=== PATIENT | male | born 1955 | race Caucasian/White ===

== ENCOUNTER → 2020-05-04 12:53 | Outpatient (CLI) | payer BC, SELFPAY ==
--- NOTE | ~2020-05-04 | MR_ITS ---
EXAMINATION: MR knee RT wo con DATE: 05/04/2020 14:30 INDICATION: Right knee pain TECHNIQUE: Magnetic resonance imaging (MRI) of the right knee was performed without intravenous contr ast. Sequences included coronal PD-weighted FSE, coronal PD-weighted FS FSE, sagittal T2-weighted FS E, sagittal PD-weighted FS FSE and axial PD weighted fat saturated FSE. COMPARISON: None. FINDINGS: Medial compartment: There is increased signal extending to contact the articular surface in the body and posterior horn o f the medial meniscus which could represent either complex tear or scarring related to a prior repair ed tear in the appropriate clinical setting. The posterior horn does appear small suggesting prior pa rtial mastectomy. Correlate with surgical history. Partial-thickness cartilage loss at the medial tib ial plateau greatest along the medial third were processed full-thickness with underlying mild subart icular edema. Additional partial thickness cartilage loss with chondral surface regularity most promi nent along the medial side of the anterior to central weightbearing medial femoral condyle. Additiona l small foci of subarticular edema along the medial margin of the central to posterior weightbearing medial femoral condyle. Lateral compartment: Lateral meniscus is normal. Partial-thickness chondral ulceration deep fissuring at the central aspec t of the lateral tibial plateau with minimal subarticular edema along the shoulder the intercondylar eminence. Patellofemoral compartment: Prominent central subchondral osteophyte likely degenerative prior chondral ulceration or fissuring a t the medial side of the cephalad aspect of the trochlear groove. Remaining cartilage in the patellof emoral compartment appears relatively preserved. Ligaments and tendons: Anterior and posterior cruciate ligaments are normal. The medial collateral ligament and fibular angi ateral ligament complex are normal. Mild distal quadriceps and proximal patellar tendinopathy. The vi sualized medial and lateral hamstring tendons as well as the iliotibial band are normal. Fluid: Small amount of fluid at the suprapatellar pouch which is within normal limits. 1.8 x 0.8 x 1.5 cm lo ose body at the posterior recess situated between the anterior and posterior cruciate ligaments. Smal l Lamb's cyst. Osseous/other: 9 x 5 x 5 mm enchondroma along the fascial scar at the posterior aspect of the distal femoral metaphy sis with typical cluster of grape like mildly increased fluid signal. There was normal marrow signal with no fracture or pathologic marrow replacing process. Small focus of susceptibility artifact exten ding along a linear tract at the anteromedial aspect of the knee suggesting sequela of a prior arthro scopy port. IMPRESSION: 1. Complex medial meniscal tear versus scarring related to prior vascular repair. Correlate with surg ical history. If clinically indicated MR arthrogram could be obtained for more definitive discriminat ion. 2. Tricompartmental osteoarthritis, moderate severity in the medial compartment and mild in the later al and patellofemoral compartments with regions of high-grade chondromalacia in all 3 compartments. 3. Small Lamb's cyst. Reviewed, dictated and finalized at location A. IMPRESSION: 1. Complex medial meniscal tear versus scarring related to prior vascular repai r. Correlate with surgical history. If clinically indicated MR arthrogram could be obtained for more definitive discrimination. 2. Tricompartmental osteoarthritis, moderate severity in the medial compartment and mild in the lateral and patellofemoral compartments with regions of high-g rade chondromalacia in all 3 compartments. 3. Small Lamb's cyst.
--- NOTE | ~2020-05-04 | MR_ITS ---
EXAMINATION: MR knee LT wo con DATE: 05/04/2020 14:16 INDICATION: Left knee pain TECHNIQUE: Magnetic resonance imaging (MRI) of the left knee was performed without intravenous contra st. Sequences included coronal PD-weighted FSE, coronal PD-weighted FS FSE, sagittal T2-weighted FSE , sagittal PD-weighted FS FSE and axial PD weighted fat saturated FSE. COMPARISON: None. FINDINGS: Medial compartment: Complex tear of the body and posterior horn of the medial meniscus. This includes a small meniscal fl ap which is displaced superiorly from the periphery of the meniscal body positioned along side a lachelle inal osteophyte at the anterior weightbearing medial femoral condyle. Partial thickness cartilage los s with chondral surface irregularity along the medial tibial plateau and weightbearing medial femoral condyle. This most severe along the medial aspect of the medial tibial plateau where it produces ful l-thickness with underlying subarticular edema. Additional deep chondral ulceration at the posterior weightbearing medial femoral condyle where there is a large central subchondral osteophyte with mild subarticular edema along its inferior margin. Moderate size marginal osteophytes are present. Lateral compartment: Increased intrasubstance signal throughout the posterior horn and posterior body of the lateral menis cus which extends to contact the articular surfaces medially near its posterior root consistent with tear either complex or radial. Chondral ulceration and deep fissuring along the posterior third of th e lateral tibial plateau. Chondral ulceration with deep fissuring with mild irregularity to the under lying articular cortex and subarticular edema at both the anterior and posterior weightbearing latera l femoral condyle. Small to moderate-sized marginal osteophytes are present. Patellofemoral compartment: Deep chondral ulceration extending across the caudal aspect of the patella with prominent central sub chondral osteophyte extending across the inferior aspect of the patellar apical ridge. Deep chondral ulceration and fissuring with additional central subchondral osteophytes at the central and superior aspect of the medial trochlea and trochlear groove and at the superior and inferior aspects of the la teral trochlea. Moderate size marginal osteophytes are present. Ligaments and tendons: Anterior cruciate ligament is normal. There is thickening and increased intrasubstance signal in the posterior cruciate ligament consistent with at least partial tear. There is thickening and mild incre ased signal of the proximal fibular collateral ligament without surrounding edema and mild thickening of the proximal medial collateral ligament also without surrounding edema consistent with scarring r elated to chronic sprains of both the medial and fibular collateral ligaments. Mild distal quadriceps tendinopathy and diffuse mild patellar tendinopathy. The visualized medial and lateral hamstring ten dons as well as the iliotibial band are normal. Fluid: Small amount of fluid at the suprapatellar pouch which is within normal limits but with mild surround ing synovitis. Small Lamb's cyst. No loose osteochondral bodies identified. Suprapatellar plical ban d. Osseous/other: Old healed fracture at the distal metadiaphyseal region of the femur. No acute fracture or pathologic marrow replacing process. There is scarring at the medial and lateral aspects of Hoffa's fat pad lik stew related to prior arthroscopy. IMPRESSION: 1. Medial and lateral meniscal tears. 2. Tricompartmental osteoarthritis, moderate severity in the patellofemoral compartment and mild in t he medial and lateral compartment with high-grade chondromalacia in all 3 compartments. 3. Patellar and distal quadriceps tendinopathy. 4. At least partial tear of the posterior cruciate ligament and scarring consistent with chronic spra
== END ==
PROVIDERS: PCP Physician Assistant; Visit Provider Orthopaedic Surgery
DX: M17.0 Bilateral primary osteoarthritis of knee (principal); S83.242A Other tear of medial meniscus, current injury, left knee, initial encounter; S83.282A Other tear of lateral meniscus, current injury, left knee, initial encounter; X58.XXXA Exposure to other specified factors, initial encounter; M71.21 Synovial cyst of popliteal space [Baker], right knee; M71.22 Synovial cyst of popliteal space [Baker], left knee
CPT/HCPCS: 73721

== ENCOUNTER → 2020-06-19 00:53 | Outpatient (CLI) | payer BC, SELFPAY ==
[2020-06-19 19:36] LABS: SARS-CoV-2 RNA PCR Negative
== END ==
PROVIDERS: PCP Physician Assistant; Visit Provider Orthopaedic Surgery
DX: Z01.812 Encounter for preprocedural laboratory examination (principal); Z20.822 Contact with and (suspected) exposure to COVID-19
CPT/HCPCS: C9803; U0003; U0005

== ENCOUNTER 2020-06-22 02:13 | Day surgery (SDC) | payer BC, SELFPAY ==
[2020-06-11 19:13] VITALS: BMI 29.9
[2020-06-22] VITALS (8 sets, daily range): BP systolic 143–178; BP diastolic 81–96; PULSE 58–77; RESP 10–18; TEMP 36.1–36.2; O2SAT 98–100
[2020-06-22] MEDS: ACETAMINOPHEN 500 MG TABLET 1000 MG PO (09:21)
[2020-06-22] MEDS: KETOROLAC 15 MG/ML VIAL (*BKC) IV PUSH (09:22)
[2020-06-22] MEDS: LACTATED RINGERS 1,000 ML 30 ML IV CONT ×2 (09:23→11:20)
--- NOTE | 2020-06-22 09:25 | WPDANESEPPF ---
Anes - Initial Pre Proc Eval Procedure: Operation Date: 06/22/20 10:30 Proposed Procedures p Right Knee Arthroscopy, Partial Meniscectomy - Luis A You MD Date/Time: 06/22/20 09:25 Surgeon: Luis A You MD Pre Op Diagnosis: right knee medial meniscal tear Patient Data Age: 64 Gender: M Height: 1.83 m Weight: 100 kg Allergies Allergy/AdvReac Type Severity Reaction Status Date / Time No Known Allergies Allergy Verified 06/22/20 08:43 Home Medications Medication Instructions Recorded Confirmed Type ibuprofen 600 mg PO BID 06/11/20 06/22/20 History Patient hx anesthesia problems: none Family hx anesthesia problems: none [facility] Past Medical History Medical History (Updated 06/17/20 @ 07:56 by Luis A You MD) Degenerative arthritis of knee, bilateral Right knee meniscal tear Surgical History Surgical History History of arthroscopic knee surgery both knees - once on the right in 2011, 3 times on left, last time 2017 History of fusion of cervical spine Family History Family History Grandparent Cancer Social History Social History Smoking status: Former smoker Tobacco type: cigarettes Second hand tobacco smoke exposure: No Smoking end date: 03/10/83 Additional smoking assessment comments: 2 ppd x 10 Alcohol intake: never Substance use: never Substance use type: does not use Living arrangements: with family 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 Gender identity (if verbalized by the patient): Male Spiritual care concerns: No Anes - Eval Final PreProcedure Day of Procedure 06/22/20 09:25 Patient weight: overweight Heart: regular rate and rhythm Lungs: clear to auscultation and normal air movement Airway: Mallampati scale class II Neurological: alert and oriented Last oral intake: >/= 8 hours ASA classification: II Emergent: no Anesthetic plan: proceed Anesthesia type and monitoring: general LMA and standard monitoring Informed Consent: The patient's anesthetic plan and its attendant risks and benefits were discussed with the patient/family/POA. Questions were solicited and answers provided to the satisfaction of the patient/family/POA.
--- NOTE | 2020-06-22 09:56 | WPDHPUPDATE1 ---
History and Physical Update Update Date/Time: 06/22/20 09:56 History and Physical has been reviewed, including an updated exam of the patient. There are NO changes in the patient's condition. Risks, benefits, and alternatives have been discussed and questions answered. Patient agrees to proceed with procedure.
[2020-06-22] MEDS: ceFAZolin 2 GM/D5W 50 ML 2 GM/50 ML BAG IVPB (10:18)
--- NOTE | 2020-06-22 11:29 | P.OP_ITS ---
Procedure Note - Detailed Date of procedure: 06/22/20 Pre-op diagnosis: right knee medial meniscal tear Post-op diagnosis: same Procedure performed: right knee arthroscopy, partial meniscectomy Description of procedure: The patient was identified and proper site identified. He was taken to the operating room and transferred to the OR table placing her supine taking care to pad the torso and extremities. After general anesthetic induction and intubation, a nonsterile tourniquet was placed high on the right thigh but was not used. The right lower extremity was positioned, prepped and draped in usual sterile fashion. 10 cc of 1% lidocaine was injected into the subcutaneous tissue in the area of the portals at start of the procedure, and an additional 10 at the end. The portals were established and the arthroscopy was carried out. There was extensive chronic synovitis throughout knee and quite a bit along the medial margin of the medial femoral condyle. This was addressed by cauterizing it with the ArthroCare Wand. A rticular cartilage in all three compartments had extensive grade two and early grade 3 changes anteriorly and laterally. ACL and PCL were in continuity. There was grade 4 kissing lesion noted medially. Complex tearing of the medial meniscus from the posterior horn into the midbody noted. This was contoured back to a more stable rim with basket forceps and shaver. Arthrocare Wand was used for intra-articular hemostasis The knee was flushed with a copious amount of arthroscopic fluid and equipment was removed. Portals were closed with three O nylon suture and a sterile dressing was applied. tolerated the procedure well, was awakened, extubated and taken to recovery area in stable condition. There were no known intraoperative complications. Estimated blood loss was negligible. He received perioperative antibiotics. Anesthesia: GLMA Surgeon: Luis A You MD Estimated blood loss (mL): 15 Tourniquet time (min): 0 Drains: No Packing: No Pathology: none sent Complications: No immediate complications Condition: stable Disposition: PACU
--- NOTE | 2020-06-22 11:45 | SUR.PHASEI ---
O2 removed at 1145.
[2020-06-22] MEDS: oxyCODONE HCL (*CRX) 5 MG TAB IR PO (12:39)
== END 2020-06-22 13:11 | disposition home or self-care (01) ==
PROVIDERS: PCP Physician Assistant; Visit Provider Orthopaedic Surgery
PROC: (CPT 29870; principal; 2020-06-22 10:30)
DX: M23.321 Other meniscus derangements, posterior horn of medial meniscus, right knee (principal); M65.861 Other synovitis and tenosynovitis, right lower leg; Z87.891 Personal history of nicotine dependence
CPT/HCPCS: 29881; A9270; J0690; J1100; J1885; J2250; J2405; J2704; J3010; J7120

== ENCOUNTER 2020-07-13 11:00 | Outpatient (RCR) | payer BC, SELFPAY ==
--- NOTE | 2020-06-24 16:56 | PTOPEVAL ---
Thank you for referring Kane Ahuja to [facility].? The patient is scheduled to be seen for therapy? ____x/week for ___ weeks. Please review, sign, date and return this plan of care RONI. I agree with and certify that the following plan of care is medically necessary. Referring Physician Date Admitting Provider: Attending Provider: Luis A You MD Referring Provider: *PT Outpatient Evaluation Start: 06/24/20 15:52 Freq: Status: Active Protocol: Document 06/24/20 15:52 MLV (Rec: 06/24/20 16:43 MLV [id number]) Therapy Assessment Status Assessment Status Assessment Status Evaluation Outpatient Past Medical History Past Medical History Source of Past Medical History Patient,Recalled from Previous Visit, Confirmed with Patient /Family Neurological History Hx Neurological Disorders No Significant History Cardiovascular History Hx Cardiac Disorders No Significant History Respiratory History Hx Respiratory Disorders No Significant History Gastrointestinal History Hx Gastrointestinal Disorders No Significant History Genitourinary History Hx Genitourinary Disorders No Significant History Musculoskeletal History Hx Fractures Yes: left femur repaired Hx Orthopedic Surgery Yes: left knee arthroscopies x3,right knee arthroscopy x1 Hx Spinal Surgery Yes: c5-4 removed with metal plate Hematological History Hx Hematological Disorders No Significant History Endocrine History Hx Endocrine Disorders No Significant History HEENT History Hx HEENT Disorders No Significant History Integumentary History Hx Skin Disorders No Significant History Reproductive History Hx Reproductive Disorders No Significant History Psychosocial History Hx Psychiatric Disorders No Significant History Pain History Has Past Pain Affected Your Daily Life Yes Effective Methods of Pain Control ibuprofen Anesthesia History Hx Anesthesia Reactions No Significant History Evaluation Information Problem Diagnosis s/p right knee scope for MT, OA Onset 1year + Cause no injury Additional Evaluation Detail The patient has been having pain at the right knee for over a year and was getting shots, but the shots stopped helping the pain. The patient had his knee scoped on 06/22/20 . 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 The maury
--- NOTE | 2020-06-24 16:57 | PTOPEVAL ---
PHYSICAL THERAPY EVALUATION Thank you for referring Kane Ahuja to [facility].?Kane was evaluated for the dx of right knee scope. The patient is scheduled to be seen for therapy? 1 x/week for 2 weeks(less due to level of ability and pt preference). Please review, sign, date and return this plan of care RONI. I agree with and certify that the following plan of care is medically necessary. Referring Physician Date Attending Provider: Luis A You MD *PT Outpatient Evaluation Start: 06/24/20 15:52 Freq: Status: Active Protocol: Document 06/24/20 15:52 MLV (Rec: 06/24/20 16:43 MLV [id number]) Therapy Assessment Status Assessment Status Evaluation Evaluation Information Problem Diagnosis s/p right knee scope for MT, OA Onset 1year + Cause no injury Additional Evaluation Detail The patient has been having pain at the right knee for over a year and was getting shots, but the shots stopped helping the pain. The patient had his knee scoped on 06/22/20. 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 The patient was still working up until surgery and is off now for recovery. The patient sees the MD on July 07 for follow up. Pain Assessment Timing of Pain Assessment Timing of Pain Assessment Assessment Pain Scale Pain Scale Used Numeric (1 - 10) Self Report Pain Assessment Right Knee(s) Reported Pain Level 3 Pain Description Aching Pain Frequency Continuous Other Pain Description pain with walking is 7 out of 10. Pain Score Pain Score 3: Self Report Interventions Used Interventions Used By Clinicians Education,Exercise,Ice Pain Relief Interventions Used By Elevation,Ice,Medication, Patient Position Change Lower Extremity Range of Motion General Lower Extremity Range of Motion Reason Not Measured WFL/Left,WFL/Right Gross Lower Extremity Range of Motion active knee ROM: left 0-117' ( Comments flexion limited for yrs from prior surgeries/injury) * right knee 3-113' Lower Extremity Muscle Strength Testing General Lower Extremity Strength R
--- NOTE | 2020-07-13 11:56 | PTOPEVAL ---
PHYSICAL THERAPY DISCHARGE Thank you for referring Kane Ahuja to [facility].? The patient has completed 3 visits for the dx of right knee scope. Bulmaro is I with HEP and plans to continue on his own with most goals met this date. DC PT. Please review, sign, date and return this plan of care RONI. I agree with and certify the following plan of care. Referring Physician Date Attending Provider: Luis A You MD *PT Outpatient Discharge Start: 06/24/20 15:52 Freq: Status: Active Protocol: Document 07/13/20 11:05 MLV (Rec: 07/13/20 11:52 [facility] [id number]) Discharge Information Problem Diagnosis s/p right knee scope for MT, OA Onset 1year + Cause no injury Additional Evaluation Detail The patient reports seeing the MD and getting a good report. The other knee is painful but reports needing a TKA on the left side so is planning on waiting. The patient reports right knee doing well but having trouble with the bending. Pain Assessment Timing of Pain Assessment Timing of Pain Assessment Assessment Pain Scale Pain Scale Used Numeric (1 - 10) Self Report Pain Assessment Right Knee(s) Reported Pain Level 1 Pain Frequency Acute,Chronic Other Pain Description bending creates pain Greatest Pain Intensity 10 Pain Aggravating Factors Exercise/Activity,Weight Bearing/Standing Pain Behaviors Limping Pain Score Pain Score 1: Self Report Interventions Used Interventions Used By Clinicians Education,Exercise,Ice Pain Relief Interventions Used By Exercise,Inactivity/Rest, Patient Position Change Lower Extremity Range of Motion General Lower Extremity Range of Motion Reason Not Measured WFL/Left,WFL/Right Gross Lower Extremity Range of Motion active knee ROM: left 0-117' ( Comments flexion limited for yrs from prior surgeries/injury) * right knee 0-122' Lower Extremity Muscle Strength Testing General Lower Extremity Strength Reason Not Measured WNL/Left Gross Lower Extremity Strength left hip 5/5, knee 5/5 with isometric testing Palpation Assessment Palpation Palpation good patellar mobility and no notable swelling/redness at right knee Gait Assessment Gait Pattern Assessment Other Gait Observations
== END 2020-07-14 08:32 | disposition home or self-care (01) ==
LOC: ANHPT 11:00
PROVIDERS: PCP Physician Assistant; Visit Provider Orthopaedic Surgery
DX: Z48.89 Encounter for other specified surgical aftercare (principal); Z98.890 Other specified postprocedural states
CPT/HCPCS: 97110; 97162

== ENCOUNTER 2021-03-09 10:54 | Outpatient (CLI) | payer BC, SELFPAY ==
--- NOTE | 2021-03-09 11:06 | ECG_ITS ---
Measurements Intervals [place] Rate: 61 P: -30 AK: 130 QRS: 42 QRSD: 98 T: 62 QT: 428 QTc: 431 Interpretive Statements SINUS RHYTHM BASELINE ARTIFACT- I, III, AVL, V6 NORMAL ECG Electronically Signed On 03-09-2021 11:19:58 [employer] by Robert Daniels D.O.
== END 2021-03-09 10:55 | disposition home or self-care (01) ==
PROVIDERS: PCP Family Medicine; Visit Provider Family Medicine
DX: Z01.818 Encounter for other preprocedural examination (principal)
CPT/HCPCS: 93005

== ENCOUNTER 2021-03-18 08:04 | Outpatient (CLI) | payer BC, SELFPAY ==
[2021-03-18 09:06] LABS: Basophils Percent Auto 0.3 % (0.2-1.2); Eosinophils Absolute Auto 0.1 K/mm3 (0-0.3); Eosinophils Percent Auto 0.8 % (0-4.4); Hemoglobin 15.6 g/dL (14.0-18.0); Immature Granulocyte Absolute 0.02 K/mm3 (0.00-0.031); Immature Granulocyte Percent A 0.3 % (0-0.5); Lymphocytes Percent Auto 22.6 % (18.3-44.2); Mean Corpuscular HGB Conc 33.9 g/dl (32-36); Mean Corpuscular Hemoglobin 32.4 pg (26-34); Mean Corpuscular Volume 95.4 fl (80-100); Mean Platelet Volume 11.1 fl (7.4-10.4); Monocytes Absolute Auto 0.7 K/mm3 (0.1-0.6); Monocytes Percent Auto 10.1 % (2.6-8.5); Neutrophils Absolute Auto 4.4 K/mm3 (1.3-6.7); Neutrophils Percent Auto 65.9 % (45.5-73.1); Platelet Count Result 189 k/mm3 (150-375); Red Blood Count 4.82 M/mm3 (4.6-6.20); White Blood Count 6.6 K/mm3 (4.5-10.0)
[2021-03-18 09:18] LABS: Albumin Level 4.7 g/dL (3.5-5.1); Estimated Glomerular Filt Rate > 60; Glucose 108 mg/dL (65-110)
[2021-03-18 09:22] LABS: Urine Cotinine NEGATIVE
[2021-03-18 09:59] LABS: Hemoglobin A1C 5.5 % (<5.7)
== END 2021-03-18 08:05 | disposition home or self-care (01) ==
LOC: ANHSURGERY 08:08
PROVIDERS: PCP Family Medicine; Visit Provider Orthopaedic Surgery
DX: Z01.812 Encounter for preprocedural laboratory examination (principal); M17.11 Unilateral primary osteoarthritis, right knee; Z51.81 Encounter for therapeutic drug level monitoring; Z79.899 Other long term (current) drug therapy
CPT/HCPCS: 80307; 82040; 82565; 82947; 83036; 85025; 86850; 86900; 86901; 87081

== ENCOUNTER 2021-03-29 00:21 | Day surgery (SDC) | payer BC, SELFPAY ==
[2021-03-18 08:01] VITALS: BP 140/84; PULSE 60; RESP 20; TEMP 36.6; O2SAT 98; BMI 29.8
--- NOTE | 2021-03-18 08:02 | PC.NURSE ---
Report to the Outpatient Waiting Room, entrance under the green pavilion located off [facility], at time _0600_ on date _03/29/21_. OR Time: _0730_. - You will be asked a series of questions to screen for COVID 19 for your protection. - A mask is required within the hospital. - No visitors are allowed at this time. Preoperative COVID Testing Requirements: NONE -Patients may have clear liquids (water, carbonated beverages, clear teas, apple juice) until 3 hours prior to surgery (0430 AM) with a maximum of 20 ounces. - No food from midnight until time of surgery Take the following medications with a SIP of water the morning of surgery: _TYLENOL IF NEEDED_ Medications to discontinue per DR. JUAREZ'S INSTRUCTIONS __IBUPROFEN_ Please no make-up, nail romanian, hairspray, perfume, deodorant, or body powder the day of surgery. No jewelry (including any body piercings) or valuables the day of surgery, leave them at home. Please take a shower or bath the night before, or the morning of, surgery with an antibacterial soap. Wear comfortable, loose fitting clothing. Children are encouraged to wear pajamas. - Jewelry must be removed prior to entering the operating room. Rings and piercings that are not removed may be cut off. - The hospital will not accept responsibility for valuables. - Please leave all valuables, including medications, at home the day of surgery. If you are going home after surgery, a licensed hydraulic lift driver must drive you home. - NO public transportation without another adult. - We recommend that an adult stay with you for 24 hours following discharge. - We also recommend that you do not drive, make important decision, drink alcoholic beverages, or take any drugs that were not prescribed by your health care provider for at least 24 hours after your discharge time. Follow any additional instructions given to you from DR. JUAREZ. Instructions given to ____PT and asked if any additional questions and then verbalized understanding. Patient advised to call surgeon office or pre surgery nurse liaisonALETHEA [phone] if any additional questions.
[2021-03-29] VITALS (15 sets, daily range): BP systolic 131–173; BP diastolic 64–91; PULSE 48–65; RESP 8–20; TEMP 36.1–36.6; O2SAT 99–100; BMI 29.8
--- NOTE | ~2021-03-29 | XR_ITS ---
EXAMINATION: XR knee RT 2V DATE: 03/29/2021 10:31 SIPHONER INDICATION: Right total knee arthroplasty TECHNIQUE: 2 views right knee FINDINGS: There is a right total knee arthroplasty in expected position. Subcutaneous gas with fluid and air in the joint are consistent with recent surgery. No evidence of periprosthetic fracture. IMPRESSION: 1. Recent right total knee arthroplasty. Reviewed, dictated and finalized at location B. ONER
[2021-03-29] MEDS: ACETAMINOPHEN 500 MG TABLET 1000 MG PO (06:30)
[2021-03-29] MEDS: LACTATED RINGERS 1,000 ML 30 ML IV CONT ×2 (06:50→10:09)
--- NOTE | 2021-03-29 06:58 | P.PNAN_ITS ---
Anes - Initial Pre Proc Eval Procedure: Operation Date: 03/29/21 07:30 Proposed Procedures p Right Total Knee Arthroplasty - Luis A You MD Date/Time: 03/29/21 06:58 Surgeon: Luis A You MD Pre Op Diagnosis: OA right knee Patient Data Age: 65 Gender: M Height: 1.83 m Weight: 99.9 kg Last Vital Signs Temp 36.1 C L 03/29/21 06:07 Pulse 61 03/29/21 06:07 Resp 16 03/29/21 06:07 BP 152/70 H 03/29/21 06:07 Pulse Ox 99 03/29/21 06:07 Allergies Allergy/AdvReac Type Severity Reaction Status Date / Time No Known Allergies Allergy Verified 03/29/21 06:14 Home Medications Medication Instructions Recorded Confirmed Type acetaminophen [Tylenol Arthritis 1,300 mg PO Q12H PRN 03/18/21 03/29/21 History Pain] rivaroxaban 10 mg tablet 10 mg PO DAILY #14 tablet 03/23/21 03/29/21 Rx Patient hx anesthesia problems: none Family hx anesthesia problems: none Results Review: All pre-operative results and documents have been reviewed as part of the pre-operative evaluation. [facility] Past Medical History Medical History Degenerative arthritis of knee, bilateral Right knee meniscal tear Surgical History Surgical History History of arthroscopic knee surgery both knees - twice on the right 2012, 2020; 3 times on left, last time 2017 History of fusion of cervical spine Family History Family History Grandparent Cancer Social History Social History Smoking packs per day: 2 Smoking cigarettes per day: 40.0 Years smoked: 15 Smoking pack-years: 30.00 Smoking status: Former smoker Tobacco type: cigarettes Second hand tobacco smoke exposure: No Smoking end date: 03/10/83 Additional smoking assessment comments: PT DENIES ALL FORMS OF TOBBACO USE Alcohol intake: never Substance use: never Substance use type: does not use Living arrangements: with family 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 Informed Consent: The patient's anesthetic plan and its attendant risks and benefits were discussed with the patient/family/POA. Questions were solicited and answers provided to the satisfaction of the patient/family/POA.
--- NOTE | 2021-03-29 07:13 | WPDHPUPDATE1 ---
History and Physical Update Update Date/Time: 03/29/21 07:13 History and Physical has been reviewed, including an updated exam of the patient. There are NO changes in the patient's condition. Risks, benefits, and alternatives have been discussed and questions answered. Patient agrees to proceed with procedure.
--- NOTE | 2021-03-29 07:14 | WPDHPUPDATE1 ---
History and Physical Update Update Date/Time: 03/29/21 07:14 History and Physical has been reviewed, including an updated exam of the patient. There are NO changes in the patient's condition. Risks, benefits, and alternatives have been discussed and questions answered. Patient agrees to proceed with procedure.
[2021-03-29] MEDS: TRANEXAMIC ACID 1,000MG/ISO100 1,000 MG/100 ML BAG 200 MG IVPB (07:18)
[2021-03-29] MEDS: ceFAZolin 2 GM/D5W 50 ML 2 GM/50 ML BAG IVPB ×3 (07:26→22:51)
--- NOTE | 2021-03-29 07:27 | WPDANESPNB ---
Anes - Peripheral Nerve Block Date/Time: 03/29/21 07:27 I have discussed with the patient/family/POA the placement of a peripheral nerve block for post-operative pain management, including associated risks, benefits, complications, and side effects. Alternative methods of post-operative analgesia were detailed. Questions were solicited and answers provided to the satisfaction of the patient/family/POA. Time-Out: A pre-procedural Time-Out was completed immediately before starting the procedure and confirmed: Patient Identification, Site, Procedure, Patient Position and the Availability of Requisite Equipment. Clinical Indications: Acute post-operative pain management requested by the operative surgeon. Nerve Block Insertion Note Anes-nerve block: adductor canal right Patient position: supine Skin prep: chlorhexidine Needle: 22 gauge, stimulating, insulated echogenic needle. Needle length: 80 mm Technique: ultrasound Technique comment: mid2mg [id number] Injectate: bupivacaine 0.5% with epi 5 mcg/ml (30ml) and dexamethasone (mg) (4) Observations: tolerated well Complications: none Procedure start time:: 716 Procedure end time:: 723
[2021-03-29] MEDS: ceFAZolin SODIUM 1 GM VIAL IV PUSH (09:14)
--- NOTE | 2021-03-29 10:06 | P.OP_ITS ---
Procedure Note - Detailed Date of Procedure 03/29/21 Pre-op Diagnosis OA right knee Post-op Diagnosis same Procedure Performed Right total knee replacement Surgeon Luis A You MD Assistant Drafter Delma Aguillon Anesthesia regional and spinal Description of Procedure The patient was identified and proper site identified. In the preop holding area the anesthesia team performed a right sub sartorial block after which the patient was taken to the operating room and transferred to the OR table posi tioning supine taking care to pad the torso and extremities. After spinal anesthetic was administered a nonsterile tourniquet was placed high on the right thigh. The right lower extremity was prepped and draped in the usual sterile fashion. The extremity was exsanguinated and with the knee flexed tourniquet was inflated to 300 mmHg remaining up for approximately 69 minutes. An anterior midline incision was made and a mid vastus approach was used. Infra and suprapatellar fat pads were excised. Patella was resected leaving 17 mm thickness and prepared for the 31 round three peg component. Using the intramedullary guide the distal femur was cut in the proper orientation for the size 75 femoral component. Using the extramedullary guide the tibia was cut perpendicular to the long axis protecting collateral ligaments and popliteal structures. It was sized to a 75. Flexion and extension gaps were balanced. Trial reduction was undertaken and the weight-bearing line was noted to passed through the center of the joint. Proximal tibia was drilled and punched in the proper orientation for the real component. Trial components were removed. The bone surfaces were washed with pulsatile lavage and dried. The real components were cemented simultaneously. The knee was held in extension and the patella held clamped until the cement had cured. Excess cement was removed from the michelle int. After trialing it was determined that the 12 mm insert gave full range of motion from 0-120 degrees of flexion and the patella tracked in the femoral groove with no lift-off. After final lavage the joint the real 12 E poly insert was placed and secured with a locking bar. A Betadine and saline wash was placed into the wound and allowed to sit for approximately 3 minutes and then evacuated. Periarticular tissues were infiltrated with 60 cc of the arthroplasty solution. 1 g of tranexamic acid was left in the wound. The extensor mechanism was repaired with #2 Vicryl suture and 0 looped PDS suture. Subcu was reapproximated with 2. Vicryl, 3-0 Monocryl and 2-0 Quill with tissue adhesive for the skin. A sterile dressing was applied. He tolerated the procedure well, was awakened and extubated, transferred to the bed and was taken to recovery area in stable condition. There were no known intraoperative complications. Perioperative antibiotics were administered. Estimated Blood Loss 200 Tourniquet Time 69 Drains No Packing No Pathology none sent Complications No immediate complications Condition stable Disposition PACU
[2021-03-29] MEDS: fentaNYL CITRATE INJ (*CRX) 100 MCG/2 ML VIAL 25 MCG IV PUSH ×4 (11:35→11:50)
--- NOTE | 2021-03-29 12:24 | ADMGEN ---
This patient, Kane Ahuja, was admitted to [facility] Surgery-16. Patient/family oriented to hospital policies and general routines including ID bracelet, bed and alarms, visiting hours, pain management, procedures, bathroom and other care routines, personal items, smoking policy, room service/diet, and visiting hours. Information on how to activate the Rapid Response Team has been discussed. Patient is encouraged to report perceived risks to care and to ask questions if they do not understand what they are told or what they should do.
[2021-03-29] MEDS: KETOROLAC 15 MG/ML VIAL (*BKC) IV PUSH ×2 (12:45→19:41)
[2021-03-29] MEDS: oxyCODONE/ACETAMINOPHEN (*CRX) 5-325 MG TABLET 1 TABLET PO ×3 (12:46→20:52)
[2021-03-29] MEDS: SODIUM CHLORIDE 0.9% IV 1,000 ML 125 ML IV CONT (12:50)
[2021-03-29] MEDS: SENNA/DOCUSATE SODIUM TABLET 2 TAB PO (16:46)
[2021-03-29] MEDS: FAMOTIDINE 20 MG TABLET PO (20:52)
[2021-03-30] MEDS: KETOROLAC 15 MG/ML VIAL (*BKC) IV PUSH ×3 (01:01→11:31)
[2021-03-30] MEDS: oxyCODONE/ACETAMINOPHEN (*CRX) 5-325 MG TABLET 1 TABLET PO ×4 (01:02→13:38)
[2021-03-30 02:00] VITALS: RESP 20
[2021-03-30 06:00] VITALS: BP 136/63; PULSE 72; RESP 20; TEMP 36.7; O2SAT 100
[2021-03-30] MEDS: ceFAZolin 2 GM/D5W 50 ML 2 GM/50 ML BAG IVPB (06:55)
--- NOTE | 2021-03-30 06:56 | WPDANESPN ---
Anes - Prog Note Post-Op Date/Time: 03/30/21 06:56 Cardiovascular status: normal Respiratory status: normal Airway patency: baseline Mental status: baseline Post-Op hydration status: normal Vital Signs: Last Vital Signs Temp 98.1 F 03/30/21 06:00 Pulse 72 03/30/21 06:00 Resp 20 03/30/21 06:00 BP 136/63 03/30/21 06:00 Pulse Ox 100 03/30/21 06:00 Pain Score (VAS): 3 I/O: Intake & Output 03/29/21 03/29/21 03/30/21 15:59 23:59 07:59 Intake Total 850 350 Output Total 600 1175 500 Balance 250 -825 -500 Post-procedural complaints: none Patient Feedback: Patient satisfied with anesthetic care.
--- NOTE | 2021-03-30 07:35 | PM.DS ---
DS: Admitting Diagnosis Discharge Date 03/30/2021 Admitting Diagnosis Right knee osteoarthritis DS: Discharge Diagnosis Discharge Diagnosis (1) History of total right knee replacement: Code(s): Z96.651 - Presence of right artificial knee joint Status: Acute Assessment and Plan: 65-year-old male postop day 1 after right total knee replacement. Overall doing well and has had no issues overnight. He is able to fully extend the knee with activation of the quad. Mild swelling around the knee but this is consistent with recent surgical procedure. Surgical dressing clean and dry. He will be on Xarelto for 2 weeks for DVT prophylaxis. He will follow up in our office in 2 weeks for wound check. DS: Summary Hospital Course Reason for hospitalization: Observation after operative procedure Hospital Course: 65-year-old male who underwent right total knee replacement with Dr. You on 03/29/2021. Overnight stay was unremarkable. Surgical dressing is clean and dry. Plan to be discharged today after receiving therapy. Status at Discharge Functional status at discharge: uses cane/walker Overall status at discharge: patient is progressing back to baseline Time Spent with Patient Time attestation: Total time spent providing and/or coordinating discharge services: Time spent: Less than 30 minutes Exam Const: General: comfortable and no acute distress HENMT: Mouth: Yes moist mucous membranes Eyes: General: appearance normal, both eyes and all related structures Resp: Effort & Inspection: normal respiratory effort GI: Inspection: non-distended GI Palp: No Tenderness to palpation present (GI) Neuro: Sensory Exam: normal sensation Extrem: Other: Exam of the right knee reveals a clean and dry surgical dressing. He is able to extend the knee to 0? with activation of the quad. Calves negative. Neurovascular status unremarkable. Psych: Mental Status: mental status grossly normal Discharge Plan Discharge Patient Disposition: Home, Self-Care Discharge Instructions: 3 times daily for 20 minutes each time, reclining in bed with ice packs over the incision and a pillow underneath the calf of the affected leg, not under the knee. Your wound is glued so it is okay to get into the shower and get the wound wet in two days. Be sure to read through all the information that came from a my office and the hospital. Most of the answers you will need can be found that material. Call the office with any questions that you cannot find answers to, or concerns you may have. After the Xarelto is completed, start taking one coated 325 mg aspirin daily and do this for four more weeks. Please call [facility] at as soon as possible to arrange for/verify your follow-up appointment to be seen in 2 weeks. Also, call the office with any orthopedic/surgical related questions prior to follow-up. Be sure to get up and move around several times daily but do not overdo it. Take the arthritis formula Tylenol 650 mg tablet on an 8 hour schedule. A good 8 hour schedule is: 6:00 a.m., 2:00 p.m., 10:00 p.m. you may take the prescribed pain medication along with the Tylenol; it is not to be taken instead of the Tylenol. I would like for you to take the Tylenol on a schedule for 2-3 weeks. Use the laxative Senekot S twice daily for 2 weeks after discharge while taking the prescription pain medication. Use Miralax once daily for 2 weeks after discharge while taking the prescription pain medication. Once the Xarelto is completed, if you wish to supplement your pain regimen with [id number] anti-inflammatory such as Advil or Aleve, that is fine. Follow the label instructions. Do not take this medicine if you have an allergy to NSAIDs. He had been given a prescription for Celebrex to take twice daily for 1 week. This is okay to take with the Xarelto. Stand Alone Forms: General Discharge Instructions Follow-up/Referrals: Lexa You
[2021-03-30 07:38] VITALS: BP 145/64; PULSE 70; RESP 18; TEMP 36.3; O2SAT 99
[2021-03-30] MEDS: SENNA/DOCUSATE SODIUM TABLET 2 TAB PO (08:30)
[2021-03-30] MEDS: FAMOTIDINE 20 MG TABLET PO (08:30)
[2021-03-30] MEDS: RIVAROXABAN 10 MG TABLET PO (08:31)
[2021-03-30] MEDS: polyethylene glycoL 3350 17 GM POWD.PACK PO (08:32)
--- NOTE | 2021-03-30 12:35 | PCOTNOTE ---
Attempted to see patient for OT, patient dressed and declined any ADL or mobility needs. Reviewed with patient that he has all the DME he needs, and discussed donning Rivera Hose. Patient's RN notified patient does not have Rivera hose. patient reports his will perform donning hose for him. Patient reports no additional concerns for OT. Patient ready to d/c.
== END 2021-03-30 14:10 | disposition home or self-care (01) ==
LOC: ANHSURGERY 10:02 → ANHSUROVER 12:06
PROVIDERS: PCP Family Medicine; Visit Provider Orthopaedic Surgery
PROC: (CPT 27447; principal; 2021-03-29 07:30)
DX: M17.11 Unilateral primary osteoarthritis, right knee (principal); G89.18 Other acute postprocedural pain; Z87.891 Personal history of nicotine dependence
CPT/HCPCS: 27447; 64447; 73560; 97110; 97116; 97161; 97165; 97530; A9270; C1713; C1776; J0171; J0690; J1100; J1885; J2250; J2270; J2405; J2704; J2795; J3010; J7030; J7120

== ENCOUNTER 2021-05-25 08:00 | Outpatient (RCR) | payer BC, SELFPAY ==
--- NOTE | 2021-04-05 09:51 | PTOPEVAL ---
PHYSICAL THERAPY INITIAL EVALUATION. Thank you for referring Kane Ahuja to [facility].? The patient is scheduled to be seen for therapy? 2x/week for 4 weeks. Please review, sign, date and return this plan of care RONI. I agree with and certify that the following plan of care is medically necessary. Referring Physician Date Attending Provider: Luis A You MD *PT Outpatient Evaluation Start: 04/05/21 Evaluation Information Diagnosis R TKA Onset 03/29/2021 Subjective Information Pt reports he has a R TKA on 2 Query Text:As Reported By Patient and was discharged from Family the hospital on 03/30/21. He states his knee is a lot more sore than he expected. He states he was is pain and did not do his exercises or walk much the last few days. Additional Prior Level of Function Lives in a multi-level home. Comments All living needs are on the main level of the home. 3 steps to enter with no railings. 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 Pain Assessment Reported Pain Level 5 Pain Description Aching,Stabbing Pain Radiation Right Leg Pain Frequency Acute,Intermittent Lowest Pain Intensity 3 Greatest Pain Intensity 6 Pain Aggravating Factors Bending,Walking Lower Extremity Range of Motion Reason Not Measured WFL/Left Knee Flexion Range of Motion - Active 70 Knee Flexion Range of Motion - Passive 82 Knee Range of Motion Limitations Edema,Pain,Soft Tissue Restriction Knee Range of Motion Comments L knee 0-104 R knee 14-70 Palpation Assessment Palpation Tender from mid posterior thigh to distal calf. Deep purple bruising along posterior thigh. Mild redness on anterior surface of knee. Yellow/blue bruising along anterior and posterior calf. Extremity Circumference Assessment Body Part Knee Circumference Comments L, R in cm. distal thigh: 44, 53.5 knee joint line: 42, 48 distal patella: 39, 42 mid calf: 41, 42.5 Transfer Assessment Chair Transfer Comments Pt plac
--- NOTE | 2021-05-03 10:49 | PTOPEVAL ---
PHYSICAL THERAPY PROGRESS NOTE. Thank you for referring Kane Ahuja to [facility] [place].? The patient is scheduled to continue for therapy? 2x/week for 4 weeks. Please review, sign, date and return this plan of care RONI. I agree with and certify that the following plan of care is medically necessary. Referring Physician Date Attending Provider: Luis A You MD Evaluation Information Diagnosis R TKA Onset 03/29/2021 Subjective Information Pt reports his knee is getting Query Text:As Reported By Patient/ better slowly but is getting Family better. He reports progressing is going slower than expected . He reports good compliance with his HEP. Pt states he is still battling LE swelling, his knee and ankle will swell if he has been on his feet all day. Pain Assessment Self Report Pain Assessment Right Knee(s) Reported Pain Level 3 Greatest Pain Intensity 6 Lower Extremity Range of Motion Right Reason Not Measured WFL/Left Knee Range of Motion Limitations Pain,Soft Tissue Restriction Knee Range of Motion Comments L knee 0-104 active R knee 3-101 passive R knee flexion 108 Lower Extremity Muscle Strength Testing Gross Lower Extremity Strength L hip flexion, knee flexion/ ext 5/5 R hip flexion 5/5 R knee flexion/ext 4+/5 B glute med 4+/5 Palpation Assessment Palpation No tenderness to palpation today Extremity Circumference Assessment Circumference Comments L, R in cm. distal thigh: 44, 44.5 knee joint line: 42, 45 distal patella: 39, 38.5 mid calf: 41, 40 Balance Assessment Time Up Go (TUG) Timed Up and Go Test (TUG) (Seconds) 9 Assistive Devices None Comments Initial: 22s use of UEs for sit <>stand 5 Time Sit to Stand Time in Seconds 13 5 Time Sit to Stand Comments Initial: 36s without UEs Gait Assessment Other Gait Observations Equal step length, stride length, and heel strike bilaterally. Notable lateral trunk lean to R with R SLS. 2 Minute Walk Total Distance Walked (feet) 535 2 Minute Walk Gait Speed Score (feet/sec 4.45 2 Minute Walk Test Comments Initial 210ft with FWW. Stair Climbing Assessment Stair Climbing Comments
--- NOTE | 2021-05-26 12:38 | PCPTNOTE ---
Attending Provider: Luis A You MD Patient:Kane Ahuja Date of :1955 Per patient, Dr. You told him he is doing well and can be discharged from therapy at this time. Patient?s initial visit was on 04/05/2021 08:30 and he had a total of 15 visits. He will be discharged today. The goals have been partially met. Thank you for referring this patient to [facility]. Please review, sign, date and return this discharge summary RONI. I have been updated about the patient's current status and I agree with discharge from the above service at this time. Referring Physician Date
== END 2021-05-27 08:11 | disposition home or self-care (01) ==
LOC: ANHPT 08:00
PROVIDERS: PCP Family Medicine; Visit Provider Orthopaedic Surgery
DX: Z47.1 Aftercare following joint replacement surgery (principal); Z96.651 Presence of right artificial knee joint
CPT/HCPCS: 97110; 97112; 97140; 97161; 97530

== ENCOUNTER 2021-06-02 07:25 | Emergency (ER) | payer BC, SELFPAY ==
--- NOTE | ~2021-06-02 | XR_ITS ---
EXAMINATION: XR femur LT min 2V DATE: 06/02/2021 07:58 INDICATION: Left thigh acute pain. TECHNIQUE: 2 views of left femur on 4 radiographs were obtained. COMPARISON: Left knee radiographs 08/08/2019 FINDINGS: There is an old healed fracture of distal femoral metaphysis. No acute fracture. There is m ild osteoarthritis of left hip and moderate osteoarthritis of left knee. No knee joint effusion. IMPRESSION: 1. Polyarticular osteoarthritis. Reviewed, dictated and finalized at location A.
--- NOTE | ~2021-06-02 | US_ITS ---
EXAMINATION: US venous doppler [facility] DATE: 06/02/2021 08:19 INDICATION: Left lower limb pain. TECHNIQUE: Grayscale ultrasound images without and with compression and Doppler ultrasound images of the left lower extremity veins were obtained. COMPARISON: None. FINDINGS: The visualized portions of left common femoral vein, profunda (deep) femoral vein, femoral vein, popl iteal vein, peroneal veins, posterior tibial veins, and greater saphenous vein outflow are patent. IMPRESSION: 1. No deep venous thrombosis. Reviewed, dictated and finalized at location A.
[2021-06-02 07:25] VITALS: BP 185/84; PULSE 88; RESP 18; TEMP 36.7; O2SAT 100
--- NOTE | 2021-06-02 07:45 | ED.LOWEXIN ---
HPI - Extremity Injury (Lower) General Chief Complaint: Extremity Injury, Lower Stated Complaint: thigh pain Time Seen by Provider: 06/02/21 07:43 Source: patient Mode of arrival: ambulatory Limitations: no limitations History of Present Illness HPI Narrative: Patient is a 65-year-old male complaining of thigh pain, 10 out of 10, spasms that started this morning. Patient denies any injury to the area. Patient denies any calf pain or swelling. Patient denies any chest pain, shortness of breath, fever or chills. Related Data Allergies Allergy/AdvReac Type Severity Reaction Status Date / Time No Known Allergies Allergy Verified 06/02/21 07:28 Review of Systems Review of Systems: All systems reviewed & are unremarkable except as noted in HPI and below Constitutional: Constitutional: Denies body ache(s), Denies chills, Denies excessive sweating, Denies fatigue, Denies fever(s), Denies headache(s), Denies lethargy, Denies malaise, Denies weakness and Denies weight loss Eyes: Eyes: Denies blurry vision, Denies change in vision and Denies loss of vision ENT: Denies dizziness, Denies ear discharge, Denies headache(s), Denies lip swelling, Denies epistaxis, Denies nasal congestion, Denies neck pain, Denies throat swelling and Denies tongue swelling Cardiovascular: Cardiovascular: Denies chest pain, Denies chest pain at rest, Denies chest pain with activity, Denies diaphoresis, Denies rapid heart rate, Denies edema, Denies irregular heart rhythm, Denies lightheadedness, Denies palpitations, Denies dyspnea and Denies dyspnea on exertion Respiratory: Respiratory: Denies chest congestion, Denies cough, Denies hemoptysis, Denies dyspnea and Denies dyspnea on exertion Gastrointestinal: Gastrointestinal: Denies abdominal pain, Denies melena, Denies hematochezia, Denies diarrhea, Denies nausea, Denies vomiting and Denies hematemesis Musculoskeletal: Musculoskeletal: Denies abnormal gait, Denies deformity, Denies joint swelling, Denies limited range of motion, Denies neck pain and Denies numbness Neurologic: Denies Abnormal speech present, Denies abnormal gait, Denies confusion, Denies dizziness, Denies headache(s), Denies focal weakness, Denies loss of vision, Denies numbness, Denies Other visual disturbances, Denies Sensory deficit (Neuro) and Denies weakness Psychiatric: Psychiatric: Denies confusion, Denies depression, Denies auditory hallucinations, Denies homicidal ideation and Denies suicidal ideation Endocrine: Endocrine: Denies cold intolerance, Denies excessive sweating, Denies fatigue, Denies heat intolerance and Denies palpitations Hematologic/Lymphatic: Hematologic/Lymphatic: Denies easy bleeding and Denies easy bruising Allergic/Immunologic: Allergic/Immunologic: Denies lip swelling, Denies throat swelling and Denies tongue swelling PMFSH Past Medical History Medical History Degenerative arthritis of knee, bilateral Right knee meniscal tear Surgical History Surgical History History of arthroscopic knee surgery both knees - twice on the right 2012, 2020; 3 times on left, last time 2017 History of fusion of cervical spine History of total right knee replacement 03/29/2021 Family History Family History Grandparent Cancer Social History Social History Smoking packs per day: 2 Smoking cigarettes per day: 40.0 Years smoked: 15 Smoking pack-years: 30.00 Smoking status: Former smoker Tobacco type: cigarettes Second hand tobacco smoke exposure: No Smoking end date: 03/10/83 Additional smoking assessment comments: PT DENIES ALL FORMS OF TOBBACO USE Alcohol intake: never Substance use: never Substance use type: does not use 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
[2021-06-02] MEDS: diazePAM (*CRX) 5 MG TABLET PO (08:13)
[2021-06-02] MEDS: HYDROcodone/acetaminophen (*CRX) 5-325 MG TABLET 1 TAB PO (08:14)
[2021-06-02] MEDS: KETOROLAC 30 MG/ML VIAL (*BKC) IM (08:14)
== END 2021-06-02 10:38 | disposition home or self-care (01) ==
PROVIDERS: Emergency Provider Emergency Medicine; PCP Family Medicine
DX: M79.652 Pain in left thigh (principal); M17.0 Bilateral primary osteoarthritis of knee; Z98.1 Arthrodesis status; Z96.651 Presence of right artificial knee joint
CPT/HCPCS: 73552; 93971; 96372; 99284; A9270; J1885

== ENCOUNTER → 2021-06-22 10:45 | Outpatient (CLI) | payer BC, SELFPAY ==
--- NOTE | ~2021-06-22 | XR_ITS ---
EXAM: XR lumbar spine min 4V HISTORY: M54.17 - Radiculopathy, lumbosacral region . COMPARISON: None available. FINDINGS: 6 nonrib-bearing lumbar-type vertebral bodies, may reflect 6 lumbar-type vertebral bodies versus hypoplastic T12 ribs. The last fully formed disc space will be designated L5-S1 for this exami nation. Anterolateral bridging osteophyte at L1-2. Pedicles intact. 2 mm retrolisthesis of L2 on L3. Vertebral body heights preserved. Mild concave superior endplate deformity at L1-L3. Mild disc space narrowing at L5-S1, multilevel marginal osteophytosis. No pars defect. Mild facet arthropathy at L5-S 1. No fracture or dislocation. IMPRESSION: Spinal level numbering anomaly described above. Multilevel moderate degenerative disc dis ease. L5-S1 facet arthropathy. Reviewed, dictated and finalized at location K. IMPRESSION: Spinal level numbering anomaly described above. Multilevel moderate degenerative disc disease. L5-S1 facet arthropathy.
== END ==
PROVIDERS: PCP Family Medicine; Visit Provider Physician Assistant Medical
DX: M54.17 Radiculopathy, lumbosacral region (principal)
CPT/HCPCS: 72110